=== PATIENT | female | born 1995 | race Caucasian/White ===

== ENCOUNTER 2017-05-27 20:11 | Emergency (ER) | payer MEDICAID, OTHER ==
--- NOTE | 2017-05-27 21:57 | ER Document Report ---
ED GI/ - General Mode of Arrival: Ambulatory Information source: Patient TRAVEL OUTSIDE OF THE [place] IN LAST 30 DAYS: No - HPI Patient complains to provider of: Vaginal bleeding Associated symptoms: Other - See above <SOCRATES CORLEY - Last Filed: 05/27/17 21:53> <DORISHAYY - Last Filed: 05/27/17 23:58> - General Chief Complaint: Vag Bleeding, +preg <12wks Stated Complaint: VAGINAL BLEEDING Time Seen by Provider: 05/27/17 21:46 Notes: Patient is a 21 year old female, with no past medical history, who presents to the emergency department complaining of vaginal bleeding while . Patient reports she is about 10 weeks is and her last menstrual cycle was at the end of February. Patient describes the bleeding as brownish in color. Patient denies abdominal cramps. 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 (SOCRATES CORLEY) Past Medical History - General Information source: Patient - Social History Smoking Status: Never Smoker Frequency of alcohol use: None Drug Abuse: None Family History: Reviewed & Not Pertinent Patient has suicidal ideation: No Patient has homicidal ideation: No <SOCRATES CORLEY - Last Filed: 05/27/17 21:53> Review of Systems - Review of Systems Constitutional: No symptoms reported EENT: No symptoms reported Cardiovascular: No symptoms reported Respiratory: No symptoms reported Gastrointestinal: denies: Abdominal pain Genitourinary: No symptoms reported Female Genitourinary: See HPI, Vaginal bleeding Musculoskeletal: No symptoms reported Skin: No symptoms reported Hematologic/Lymphatic: No symptoms reported Neurological/Psychological: No symptoms reported -: Yes All other systems reviewed and negative <SOCRATES CORLEY - Last Filed: 05/27/17 21:53> Physical Exam - Vital signs Interpretation: Normal - General General appearance: Appears well, Alert - HEENT Head: Normocephalic, Atraumatic - Respiratory Respiratory status: No respiratory distress Chest status: Nontender Breath sounds: Normal Chest palpation: Normal - Cardiovascular Rhythm: Regular Heart sounds: Normal auscultation Murmur: No - Abdominal Inspection: Normal Distension: No distension Bowel sounds: Normal Tenderness: Nontender Organomegaly: No organomegaly - Extremities General upper extremity: Normal inspection General lower extremity: Normal inspection - Neurological Neuro grossly intact: Yes Cognition: Normal Orientation: AAOx4 Valeria Coma Scale Eye Opening: Spontaneous Valeria Coma Scale Verbal: Oriented Valeria Coma Scale Motor: Obeys Commands [place] Coma Scale Total: 15 Speech: Normal - Psychological Associated symptoms: Normal affect, Normal mood - Skin Skin Temperature: Warm Skin Moisture: Dry Skin Color: Normal <BARNEYSOCRATES - Last Filed: 05/27/17 21:53> Course - Laboratory Result Diagrams: 05/27/17 22:03 <SHAYY MEADOWS - Last Filed: 05/27/17 23:58> - Vital Signs Vital signs: Temp Pulse Resp BP Pulse Ox 98.4 F 80 16 122/67 100 05/27/17 20:25 05/27/17 20:25 05/27/17 20:25 05/27/17 20:25 05/27/17 20:25 - Laboratory Laboratory results interpreted by me: 05/27/17 05/27/17 22:03 22:25 Beta HCG, Quant 48765.00 H Urine Blood MODERATE H Ur Leukocyte Esterase MODERATE H Discharge <SOCRATES CORLEY - Last Filed: 05/27/17 21:53> <SHAYY MEADOWS - Last Filed: 05/27/17 23:58> - Discharge Clinical Impression: with 7 completed weeks gestation Vaginal bleeding in Qualifiers: Trimester: first trimester Qualified Code(s): O46.91 - Antepartum hemorrhage, unspecified, first trimester Condition: Stable Disposition: HOME, SELF-CARE Additional Instructions: Bleeding During Early : You have been evaluated for passing blood while . While we take this symptom very seriously, most women with your degree of bleeding will go on to have a perfectly normal baby. At this time, there is no indication that a miscarriage will occur. (A miscarriage occurs when the fetus is abnormal. There is no medicine or treatment to prevent it.) A more serious cause of bleeding is tubal . An ultrasound can show whether the is in the uterus or in the tube. Sometimes in early , no fetus is seen. In this case, careful follow-up, including repeat blood tests and repeat ultrasound, is necessary. You should rest in bed until the symptoms have resolved. Do not douche or have sex for at least a week, or until OK'd by the doctor. Don't use tampons. Call the doctor or return for re-examination if there is an increase in bleeding or cramping, extreme weakness, fainting, new abdominal pain, fever, or passage of tissue. Your ultrasound showed a 7 week 5 day with a heart rate of 171. The bleeding you described was probably a subchorionic hemorrhage, however there is none seen on ultrasound at this time. You should rest and limit activity. [facility] for [facility]ck. Referrals: [facility] [Provider Group] - Follow up in 3-5 days Scribe Attestation: 05/27/17 23:58 I personally performed the services described in the documentation, reviewed and edited the documentation which was dictated to the scribe in my presence, and it accurately records my words and actions. (SHAYY MEADOWS) Scribe Documentation - Scribe Written by Sergio:: sergio Escobedo, 05/27/17, [id number] acting as scribe for :: Dori <SOCRATES CORLEY - Last Filed: 05/27/17 21:53>
[2017-05-27 22:16] LABS: ABSOLUTE EOSINOPHILS # (AUTO) 0.2 10^3/uL (0.0-0.6); ABSOLUTE LYMPHOCYTES (AUTO) 2.3 10^3/uL (0.5-4.7); ABSOLUTE MONOCYTES (AUTO) 0.5 10^3/uL (0.1-1.4); ABSOLUTE NEUT (AUTO) 4.3 10^3/uL (1.7-8.2); BASOPHILS % (AUTO) 0.4 % (0-2); EOSINOPHILS % (AUTO) 2.1 % (0-6); HEMATOCRIT 39.3 % (36.0-47.0); HEMOGLOBIN 13.2 g/dL (12.0-15.5); HGB HCT DIFFERENCE 0.3; MEAN CORPUSCULAR HEMOGLOBIN 29.5 pg (27.0-33.4); MEAN CORPUSCULAR HGB CONC 33.6 g/dL (32.0-36.0); MEAN CORPUSCULAR VOLUME 88 fl (80-97); MONOCYTES % (AUTO) 7.5 % (3-13); RED BLOOD COUNT 4.48 10^6/uL (3.72-5.28); RED CELL DISTRIBUTION WIDTH 13.5 % (11.5-14.0); WHITE BLOOD COUNT 7.3 10^3/uL (4.0-10.5)
--- NOTE | 2017-05-27 22:57 | RADIOLOGY REPORT (SQ) ---
EXAM DESCRIPTION: U/S OB TRANSVAGINAL W/O DOP COMPLETED DATE/TIME: 05/27/2017 10:28 pm REASON FOR STUDY: 10 weeks, spotting, no care COMPARISON: None. TECHNIQUE: Transvaginal static and realtime grayscale images acquired of the pelvis. Additional edward cted spectral and color Doppler images recorded. All images stored on PACs. bHCG: None provided LIMITATIONS: None. FINDINGS: FETUS: Living intrauterine . EGA: Murdock-rump length measures 1.43 cm consistent with a of 7 weeks 5 days. MIKKI: 01/08/2018 FHR: 171 beats per minute. SUBCHORIONIC BLEED: No SIZE OF BLEED: Not applicable. UTERUS: No masses. No anomalies. CERVICAL LENGTH: Not provided RIGHT ADNEXA: Normal ovary with normal vascular flow. No adnexal free fluid. No adnexal masses. LEFT ADNEXA: Ovary not identified. No adnexal free fluid. No adnexal masses. FREE FLUID: None. OTHER: No other significant finding. IMPRESSION: LIVING INTRAUTERINE . EGA 7 weeks 5 days by crown-rump length Left ovary not visualized on this study. Normal right ovary. Trimester of : First - 0 to 13 weeks. TECHNICAL DOCUMENTATION: JOB ID: [id number] [employer] All Rights Reserved
[2017-05-27 23:16] LABS: APPEARANCE,URINE CLEAR; BILIRUBIN,URINE NEGATIVE (NEGATIVE); GLUCOSE, URINE NEGATIVE (NEGATIVE); KETONES,URINE NEGATIVE (NEGATIVE); LEUKOCYTE ESTERASE,URINE MODERATE (NEGATIVE); NITRITE,URINE NEGATIVE (NEGATIVE); PROTEIN,URINE NEGATIVE (NEGATIVE); URINE SPECIFIC GRAVITY 1.005; UROBILINOGEN,URINE NEGATIVE mg/dL (<2.0)
[2017-05-28 00:05] VITALS: BP 118/76
== END 2017-05-28 00:05 | disposition home or self-care (01) ==
LOC: ER 20:11
DX: O46.91 Antepartum hemorrhage, unspecified, first trimester (principal); Z3A.10 10 weeks gestation of pregnancy
CPT/HCPCS: 36415; 76817; 81001; 84702; 85025; 86900; 86901; 99284

== ENCOUNTER 2017-06-03 02:44 | Emergency (ER) | payer MEDICAID ==
[2017-06-03] MEDS ORDERED: ACETAMINOPHEN 325 MG TABLET PO ONE (04:23)
--- NOTE | 2017-06-03 04:26 | ER Document Report ---
ED General - General Chief Complaint: Vag Bleeding, +preg <12wks Stated Complaint: VAGINAL BLEEDING Time Seen by Provider: 06/03/17 04:18 Notes: Patient is a 21-year-old female presents with complaint of abdominal pain and bleeding and . She says she is approximately 9 months . She has had bleeding for 3 weeks. She says bleeding is like a normal menstrual period. Pain is been gradually increasing. Pain is crampy type pain in the lower abdomen that radiates to her back. This is her first . She was seen here in May 27. At that time her quant was just over 23,000. Ultrasound showed a living IUP. [facility] She said that they did not take blood at that time but that did recheck her. Patient has occasionally taken Tylenol for pain. No recent fevers or infections. Some nausea but no vomiting. No other complaints at this time. TRAVEL OUTSIDE OF THE [place] IN LAST 30 DAYS: No - Related Data Allergies/Adverse Reactions: No Known Allergies Allergy (Unverified 06/03/17 02:50) Past Medical History - Social History Smoking Status: Never Smoker Frequency of alcohol use: None Drug Abuse: None Family History: Reviewed & Not Pertinent Patient has suicidal ideation: No Patient has homicidal ideation: No Renal/ Medical History: Denies: Hx Peritoneal Dialysis Review of Systems - Review of Systems Notes: My Normal Review Basic REVIEW OF SYSTEMS: CONSTITUTIONAL : Denies fever, chills, or sweats. Denies recent illness. RESPIRATORY: Denies cough, cold, or chest congestion. Denies shortness of breath, difficulty breathing, or wheezing. GASTROINTESTINAL: Lower abdominal pain. Some nausea. No vomiting. Denies constipation. Last BM: GENITOURINARY: Denies difficulty urinating, painful urination, burning, frequency, or blood in urine. FEMALE GENITOURINARY: Vaginal bleeding. LMP: Currently MUSCULOSKELETAL: Denies neck or back pain or joint pain or swelling. SKIN: Denies rash or skin lesions. HEMATOLOGIC : Denies easy bruising or bleeding.. NEUROLOGICAL: Denies altered mental status or loss of consciousness. Denies headache. Denies weakness or paralysis or loss of use of either side. Denies problems with gait or speech. Denies sensory or motor loss. ALL OTHER SYSTEMS REVIEWED AND NEGATIVE. Physical Exam - Vital signs Vitals: Temp Pulse Resp BP Pulse Ox 98.2 F 84 18 126/71 H 100 06/03/17 02:46 06/03/17 02:46 06/03/17 02:46 06/03/17 02:46 06/03/17 02:46 Course - Re-evaluation Re-evalutation: 06/03/17 06:24 On reevaluation patient continues to look very well. She does have a urinary tract infection on urinalysis. I did send her urine for culture. She does not have positive Romel's sign. She has minimal pain to palpation of her lower abdomen. She has no elevated white blood cell count. She does not have a fever. I do not feel that she requires admission at this time. I will give her a dose of Rocephin. I will place her on Keflex. I informed her that since she is she must return to the ER immediately if she has any fevers or feels that her symptoms are worsening. She does have a small subchorionic hemorrhage on ultrasound. I informed her that this could enlarge or he could get better. Informed her the best thing she can do is to avoid sexual activity and to avoid any heavy lifting or exertional activities. Patient agrees with plan. I talked to the patient at length about first trimester bleeding. I informed her that her may go on to be normal or could possibly in the miscarriage. I told her that we are unable to fully tell this at this time. Patient did have some increase her hCG level. Informed her did not increase quite as much as I would expect; however, this is not necessarily an indication that she is going to have a miscarriage. Patient has a follow-up appointment with her OB doctor on Saturday. Patient encouraged to return to ER immediately if she does have any heavy bleeding or worsening pain. Dictation of this chart was performed using voice recognition software; therefore, there may be some unintended grammatical errors. - Vital Signs Vital signs: Temp Pulse Resp BP Pulse Ox 98.2 F 84 18 126/71 H 100 06/03/17 02:46 06/03/17 02:46 06/03/17 02:46 06/03/17 02:46 06/03/17 02:46 - Laboratory Result Diagrams: 06/03/17 04:35 Laboratory results interpreted by me: 06/03/17 06/03/17 06/03/17 04:35 04:35 04:35 Hct 35.9 L Plt Count 142 L Seg Neutrophils % 79.4 H Beta HCG, Quant 30041.00 H Urine Protein 100 H Urine Blood LARGE H Urine Nitrite POSITIVE H Ur Leukocyte Esterase LARGE H Discharge - Discharge Clinical Impression: UTI (urinary tract infection) Qualifiers: Urinary tract infection type: site unspecified Hematuria presence: with hematuria Qualified Code(s): N39.0 - Urinary tract infection, site not specified ; R31.9 - Hematuria, unspecified Subchorionic bleed Qualifiers: Fetus number: single or unspecified fetus Trimester: first trimester Qualified Code(s): O41.8X10 - Other specified disorders of amniotic fluid and membranes, first trimester, not applicable or unspecified Condition: Good Disposition: HOME, SELF-CARE Additional Instructions: You have been given a dose of Rocephin. This is an antibiotic that you are given a shot of here in the ER. I have written a prescription for Keflex. This is an antibiotic he will continue to take over the next 7 days. Currently have no fever and you have no elevated white blood cell count in your blood work. Vital signs are normal. These are indications that infection is not severe. Despite this, it is still extremely important that you return to the ER immediately if you have any fevers, recurrent vomiting, or feel that your condition is worsening in any way. Your ultrasound did show a subchorionic hemorrhage. Please do not have any sexual activity and do not do any heavy lifting or any exertional activities. Please follow-up with your OB doctor on Saturday as scheduled. Your hCG level was just over 23,000 today. Return to the ER immediately if you have any heavy bleeding or worsening increasing pain. Prescriptions: Cephalexin Monohydrate [Keflex 500 mg Capsule] 500 mg PO QID #28 capsule Referrals: NADINE VALDEZ MD [Primary Care Provider] - 06/05/17
[2017-06-03 04:50] LABS: ABSOLUTE EOSINOPHILS # (AUTO) 0.1 10^3/uL (0.0-0.6); ABSOLUTE LYMPHOCYTES (AUTO) 1.2 10^3/uL (0.5-4.7); ABSOLUTE MONOCYTES (AUTO) 0.5 10^3/uL (0.1-1.4); ABSOLUTE NEUT (AUTO) 6.9 10^3/uL (1.7-8.2); BASOPHILS % (AUTO) 0.3 % (0-2); EOSINOPHILS % (AUTO) 0.7 % (0-6); HEMATOCRIT 35.9 % (36.0-47.0); HEMOGLOBIN 12.2 g/dL (12.0-15.5); HGB HCT DIFFERENCE 0.7; LYMPHOCYTES % (AUTO) 13.6 % (13-45); MEAN CORPUSCULAR HEMOGLOBIN 29.5 pg (27.0-33.4); MEAN CORPUSCULAR VOLUME 87 fl (80-97); RED BLOOD COUNT 4.14 10^6/uL (3.72-5.28); RED CELL DISTRIBUTION WIDTH 13.4 % (11.5-14.0); SEGMENTED NEUTROPHILS % (AUTO) 79.4 % (42-78); WHITE BLOOD COUNT 8.7 10^3/uL (4.0-10.5)
[2017-06-03 05:46] LABS: APPEARANCE,URINE CLOUDY; BILIRUBIN,URINE NEGATIVE (NEGATIVE); GLUCOSE, URINE NEGATIVE (NEGATIVE); KETONES,URINE NEGATIVE (NEGATIVE); LEUKOCYTE ESTERASE,URINE LARGE (NEGATIVE); NITRITE,URINE POSITIVE (NEGATIVE); PROTEIN,URINE 100 mg/dL (NEGATIVE); URINE SPECIFIC GRAVITY 1.016; UROBILINOGEN,URINE NEGATIVE mg/dL (<2.0)
--- NOTE | 2017-06-03 05:54 | RADIOLOGY REPORT (SQ) ---
EXAM DESCRIPTION: U/S OB TRANSVAG W/DOPPLER COMPLETED DATE/TIME: 06/03/2017 5:26 am REASON FOR STUDY: abd. pain, vag bleeding in COMPARISON: OB ultrasound 05/27/2017. TECHNIQUE: Transvaginal grayscale images acquired of the pelvis. Additional selected spectral and co luciano Doppler images recorded. All images stored on PACs. bHCG: Pending. LIMITATIONS: None. FINDINGS: FETUS: Living intrauterine . EGA: 8 weeks 5 days MIKKI: 01/08/2018 FHR: 175 beats per minute. SUBCHORIONIC BLEED: Yes. SIZE OF BLEED: 0.8 x 0.7 x 0.3 cm. UTERUS: Measures 7.9 x 5.8 x 3.8 cm. CERVICAL LENGTH: 2.1 cm. Closed. RIGHT ADNEXA: The right ovary measures 3.3 x 2.5 x 1.8 cm. Flow by Doppler was shown to the right ov noé. LEFT ADNEXA: The left ovary measures 2.9 x 2.0 x 2.1 cm. Flow by Doppler was shown to the left ovary . FREE FLUID: Trace amount of free fluid in the posterior cul-de-sac. IMPRESSION: LIVING INTRAUTERINE . EGA 8 WEEKS 5 DAYS. SMALL SUBCHORIONIC HEMORRHAGE. Trimester of : First - 0 to 13 weeks. TECHNICAL DOCUMENTATION: JOB ID: [id number] [employer]- All Rights Reserved
[2017-06-03] MEDS ORDERED: CEFTRIAXONE INJ 1000 MG VIAL IM ONE (06:13)
[2017-06-03] MEDS ORDERED: LIDOCAINE 1% INJ-PF (10 MG/ML) 30 ML SDV INFIL ONE (06:13)
[2017-06-03 06:54] VITALS: BP 124/76
== END 2017-06-03 06:55 | disposition home or self-care (01) ==
LOC: ER 02:44
DX: O41.8X10 Other specified disorders of amniotic fluid and membranes, first trimester, not applicable or unspecified (principal); O23.41 Unspecified infection of urinary tract in pregnancy, first trimester; R31.9 Hematuria, unspecified; Z3A.09 9 weeks gestation of pregnancy
CPT/HCPCS: 99284; 96372; 36415; 87086; 84702; 85025; 87088; 81001; 87186; 76817; 93976; J3490; J0696

== ENCOUNTER 2017-06-04 20:12 | Emergency (ER) | payer MEDICAID ==
[2017-06-04] MEDS ORDERED: HYDROCODONE/ACETAMINOPHEN 5-325 MG TABLET PO ONE (20:42)
--- NOTE | 2017-06-04 20:43 | ER Document Report ---
ED Medical Screen (RME) - General Chief Complaint: Vaginal Bleeding Stated Complaint: ABDOMINAL PAIN,VAGINAL BLEEDING Time Seen by Provider: 06/04/17 20:41 Notes: 21-year-old female G1 with some vaginal bleeding that has been a regular for around the last 10-11 days. Patient believes she passed the fetus today. She has had a recent ultrasound in this facility and [facility]. Patient states persistent left lower quadrant "cramping". She denies any fevers lightheadedness, or dizziness. TRAVEL OUTSIDE OF THE [place] IN LAST 30 DAYS: No - Related Data Allergies/Adverse Reactions: No Known Allergies Allergy (Verified 06/04/17 20:32) Past Medical History Renal/ Medical History: Denies: Hx Peritoneal Dialysis - Immunizations Hx Diphtheria, Pertussis, Tetanus Vaccination: No Physical Exam - Vital signs Vitals: Temp Pulse Resp BP Pulse Ox 98.4 F 83 18 111/59 L 100 06/04/17 20:33 06/04/17 20:33 06/04/17 20:33 06/04/17 20:33 06/04/17 20:33 Course - Vital Signs Vital signs: Temp Pulse Resp BP Pulse Ox 98.4 F 83 18 111/59 L 100 06/04/17 20:33 06/04/17 20:33 06/04/17 20:33 06/04/17 20:33 06/04/17 20:33
[2017-06-04 21:21] LABS: ABSOLUTE EOSINOPHILS # (AUTO) 0.1 10^3/uL (0.0-0.6); ABSOLUTE LYMPHOCYTES (AUTO) 1.9 10^3/uL (0.5-4.7); ABSOLUTE MONOCYTES (AUTO) 0.4 10^3/uL (0.1-1.4); BASOPHILS % (AUTO) 0.3 % (0-2); EOSINOPHILS % (AUTO) 1.7 % (0-6); HEMATOCRIT 36.4 % (36.0-47.0); HEMOGLOBIN 12.4 g/dL (12.0-15.5); HGB HCT DIFFERENCE 0.8; LYMPHOCYTES % (AUTO) 25.5 % (13-45); MEAN CORPUSCULAR HEMOGLOBIN 29.4 pg (27.0-33.4); MEAN CORPUSCULAR HGB CONC 34.1 g/dL (32.0-36.0); MEAN CORPUSCULAR VOLUME 86 fl (80-97); MONOCYTES % (AUTO) 5.9 % (3-13); RED BLOOD COUNT 4.21 10^6/uL (3.72-5.28); RED CELL DISTRIBUTION WIDTH 13.3 % (11.5-14.0); SEGMENTED NEUTROPHILS % (AUTO) 66.6 % (42-78); WHITE BLOOD COUNT 7.5 10^3/uL (4.0-10.5)
[2017-06-04] MEDS ORDERED: MISOPROSTOL 0.2 MG TABLET PO ONE (22:51)
[2017-06-04] MEDS ORDERED: NORMAL SALINE 1000 ML 1,000 ML IV PRN (22:57)
--- NOTE | 2017-06-04 22:57 | ER Document Report ---
ED General - General Chief Complaint: Vaginal Bleeding Stated Complaint: ABDOMINAL PAIN,VAGINAL BLEEDING Time Seen by Provider: 06/04/17 20:41 Mode of Arrival: Ambulatory Information source: Patient TRAVEL OUTSIDE OF THE [place] IN LAST 30 DAYS: No - HPI Patient complains to provider of: Vaginal bleeding, with spontaneous at home Onset: Just prior to arrival Onset/Duration: Gradual Quality of pain: Achy, Cramping Severity: Mild Pain Level: 2 Associated symptoms: None Exacerbated by: Denies Relieved by: Denies Similar symptoms previously: Yes Recently seen / treated by doctor: Yes Notes: Patient is a 21-year-old female who is approximately 9 weeks who presents to the emergency room for vaginal bleeding that began several days ago , she reports at home prior to coming to the emergency room she passed a large amount of blood as well as tissue consistent with a 9 week fetus, this was her first , she reports that she continues to have heavy bleeding, denies lightheadedness or shortness of breath, reporting mild pelvic cramping - Related Data Allergies/Adverse Reactions: No Known Allergies Allergy (Verified 06/04/17 20:32) Past Medical History - General Information source: Patient - Social History Smoking Status: Unknown if Ever Smoked Drug Abuse: None Family History: Reviewed & Not Pertinent Patient has suicidal ideation: No Patient has homicidal ideation: No Renal/ Medical History: Denies: Hx Peritoneal Dialysis - Immunizations Hx Diphtheria, Pertussis, Tetanus Vaccination: No Review of Systems - Review of Systems Constitutional: No symptoms reported EENT: No symptoms reported Cardiovascular: No symptoms reported Respiratory: No symptoms reported Gastrointestinal: No symptoms reported Genitourinary: No symptoms reported Female Genitourinary: See HPI Musculoskeletal: No symptoms reported Skin: No symptoms reported Hematologic/Lymphatic: No symptoms reported Neurological/Psychological: No symptoms reported -: Yes All other systems reviewed and negative Physical Exam - Vital signs Vitals: Temp Pulse Resp BP Pulse Ox 98.4 F 83 18 111/59 L 100 06/04/17 20:33 06/04/17 20:33 06/04/17 20:33 06/04/17 20:33 06/04/17 20:33 Interpretation: Normal - General General appearance: Appears well, Alert - HEENT Head: Normocephalic, Atraumatic Eyes: Normal Pupils: PERRL - Respiratory Respiratory status: No respiratory distress Chest status: Nontender Breath sounds: Normal Chest palpation: Normal - Cardiovascular Rhythm: Regular Heart sounds: Normal auscultation Murmur: No - Abdominal Inspection: Normal Distension: No distension Bowel sounds: Normal Tenderness: Nontender Organomegaly: No organomegaly - Genitourinary External exam: Normal Speculum exam: Cervix closed, Vaginal discharge Vaginal bleeding: Mild Bimanuel exam: Normal - Back Back: Normal, Nontender - Extremities General upper extremity: Normal inspection, Nontender, Normal color, Normal ROM , Normal temperature General lower extremity: Normal inspection, Nontender, Normal color, Normal ROM , Normal temperature, Normal weight bearing. No: Ramiro's sign - Neurological Neuro grossly intact: Yes Cognition: Normal Orientation: AAOx4 Valeria Coma Scale Eye Opening: Spontaneous [place] Coma Scale Verbal: Oriented [place] Coma Scale Motor: Obeys Commands Valeria Coma Scale Total: 15 Speech: Normal Motor strength normal: LUE, RUE, LLE, RLE Sensory: Normal - Psychological Associated symptoms: Normal affect, Normal mood - Skin Skin Temperature: Warm Skin Moisture: Dry Skin Color: Normal Course - Re-evaluation Re-evalutation: 06/04/17 22:57 Patient was discussed with on-call SCRUB WHEEL OPERATOR, Dr. Paredes who recommends 100 mcg of Cytotec p.o. 06/05/17 01:32 On exam patient has minimal amount of bleeding at the present time, cervix is closed, lab and imaging findings were discussed with patient at bedside which are consistent with complete , patient was provided with pain medication and advised to follow-up with SCRUB WHEEL OPERATOR or return if symptoms worsen, patient and family members at bedside acknowledge understanding and agreement with this plan - Vital Signs Vital signs: Temp Pulse Resp BP Pulse Ox 98.4 F 83 18 111/59 L 100 06/04/17 20:33 06/04/17 20:33 06/04/17 20:33 06/04/17 20:33 06/04/17 20:33 - Laboratory Result Diagrams: 06/04/17 21:08 - Diagnostic Test Radiology reviewed: Image reviewed, Reports reviewed Discharge - Discharge Clinical Impression: Complete miscarriage Condition: Stable Disposition: HOME, SELF-CARE Instructions: Miscarriage ([facility]) Additional Instructions: Follow up with your primary care provider and SCRUB WHEEL OPERATOR in one to 2 days. Return to the emergency room immediately if symptoms worsen or any additional concerns. Prescriptions: Hydrocodone/Acetaminophen [Hydrocodon-Acetaminophen 5-325] 1 each PO Q6 #14 tablet Referrals: NADINE VALDEZ MD [Primary Care Provider] - Follow up as needed
--- NOTE | 2017-06-04 23:47 | RADIOLOGY REPORT (SQ) ---
EXAM DESCRIPTION: U/S OB TRANSVAGINAL W/O DOP COMPLETED DATE/TIME: 06/04/2017 11:25 pm REASON FOR STUDY: pit; possible miscarriage; eval for complete passa COMPARISON: 05/27/2017 TECHNIQUE: Transvaginal static and realtime grayscale images acquired of the pelvis. Additional edward cted spectral and color Doppler images recorded. All images stored on PACs. BHCG: Not available. LIMITATIONS: None. FINDINGS: UTERUS: No visualized intrauterine . RIGHT ADNEXA: Normal ovary with normal vascular flow. No adnexal free fluid. No adnexal masses. LEFT ADNEXA: Normal ovary with normal vascular flow. No adnexal free fluid. No adnexal masses. FREE FLUID: Minimal fluid in the cervix. OTHER: Thickened endometrium 16 mm. There is color flow within the endometrium. IMPRESSION: NO VISUALIZED INTRA- OR EXTRAUTERINE . Spontaneous . bHCG LEVEL NOT AVAILABLE FOR CORRELATION WITH US FINDINGS. Heterogeneous endometrium with minimal positive vascular flow. TECHNICAL DOCUMENTATION: JOB ID: [id number] [employer]- All Rights Reserved
[2017-06-04] MEDS ORDERED: MISOPROSTOL 0.1 MG TABLET ONE (23:59)
[2017-06-04] MEDS ORDERED: MISOPROSTOL 0.2 MG TABLET ONE (23:59)
[2017-06-05] MEDS ORDERED: HYDROCODONE/ACETAMINOPHEN 5-325 MG 6 TAB/DSPK PO PRN (00:51)
[2017-06-05 02:17] VITALS: BP 110/70
== END 2017-06-05 01:46 | disposition home or self-care (01) ==
LOC: ER 20:12
DX: O03.9 Complete or unspecified spontaneous abortion without complication (principal)
CPT/HCPCS: 99284; 36415; 85025; 88305 ×2; 76817; J3490

== ENCOUNTER 2017-10-28 21:53 | Emergency (ER) | payer MEDICAID ==
[2017-10-28] MEDS ORDERED: NORMAL SALINE 1000 ML 1,000 ML IV ONE (23:45)
[2017-10-28] MEDS ORDERED: ONDANSETRON HCL INJ/PF 4 MG/2 ML SDV IV ONE (23:45)
--- NOTE | 2017-10-28 23:46 | ER Document Report ---
ED Medical Screen (RME) - General Chief Complaint: Dizziness Stated Complaint: DIZZINESS Time Seen by Provider: 10/28/17 23:39 TRAVEL OUTSIDE OF THE [place] IN LAST 30 DAYS: No - HPI Notes: 10/28/17 23:39 Patient is a 22-year-old female who presents the ED approximately 15 weeks complaining of feeling lightheaded, dizzy and nauseous 4-5 days. Patient states that she did have 2 episodes of vomiting today. Patient began developing a headache today as well with occasional light sensitivity. Patient states that she did have a miscarriage in the past when she was 10 weeks . She has not been evaluated by an [facility]ORATORY CHIEF, but is going to be appointed one [facility]. Patient has had a decreased p.o. intake because of the nausea. Patient has not had any vaginal bleeding, odor, or pelvic cramping. Patient does note having a dull soreness to her mid abdomen, however. Her last bowel movement was about 2 days ago which is normal for her to have a bowel movement every 2-3 days. Patient denies any other significant past medical history or drug allergies. Denies any fever, neck pain, URI, sore throat, chest pain, palpitations, syncope, cough, shortness of breath, wheeze, dyspnea, diarrhea, urinary retention, dysuria, hematuria, or rash. I have treated and performed a rapid initial assessment of this patient. A comprehensive ED assessment and evaluation of the patient, analysis of test results and completion of medical decision making process will be conducted by additional ED providers. - Related Data Allergies/Adverse Reactions: No Known Allergies Allergy (Verified 10/28/17 21:54) Past Medical History Renal/ Medical History: Denies: Hx Peritoneal Dialysis - Immunizations Hx Diphtheria, Pertussis, Tetanus Vaccination: No Physical Exam - Vital signs Vitals: Temp Pulse Resp BP Pulse Ox 97.9 F 93 16 118/63 100 10/28/17 21:58 10/28/17 21:58 10/28/17 21:58 10/28/17 21:58 10/28/17 21:58 - Respiratory Respiratory status: No respiratory distress Breath sounds: Normal - Cardiovascular Rhythm: Regular Heart sounds: Normal auscultation Course - Vital Signs Vital signs: Temp Pulse Resp BP Pulse Ox 97.9 F 93 16 118/63 100 10/28/17 21:58 10/28/17 21:58 10/28/17 21:58 10/28/17 21:58 10/28/17 21:58
[2017-10-29 00:11] LABS: ABSOLUTE EOSINOPHILS # (AUTO) 0.1 10^3/uL (0.0-0.6); ABSOLUTE LYMPHOCYTES (AUTO) 1.9 10^3/uL (0.5-4.7); ABSOLUTE MONOCYTES (AUTO) 0.5 10^3/uL (0.1-1.4); ABSOLUTE NEUT (AUTO) 5.5 10^3/uL (1.7-8.2); BASOPHILS % (AUTO) 0.3 % (0-2); EOSINOPHILS % (AUTO) 1.3 % (0-6); HEMATOCRIT 33.7 % (36.0-47.0); HEMOGLOBIN 12.1 g/dL (12.0-15.5); HGB HCT DIFFERENCE 2.6; LYMPHOCYTES % (AUTO) 23.4 % (13-45); MEAN CORPUSCULAR HEMOGLOBIN 30.9 pg (27.0-33.4); MEAN CORPUSCULAR HGB CONC 35.8 g/dL (32.0-36.0); MEAN CORPUSCULAR VOLUME 86 fl (80-97); MONOCYTES % (AUTO) 5.9 % (3-13); RED BLOOD COUNT 3.91 10^6/uL (3.72-5.28); RED CELL DISTRIBUTION WIDTH 14.4 % (11.5-14.0); SEGMENTED NEUTROPHILS % (AUTO) 69.1 % (42-78)
[2017-10-29 00:35] LABS: ALANINE AMINOTRANSFERASE 36 U/L (9-52); ALBUMIN 3.8 g/dL (3.5-5.0); ALKALINE PHOSPHATASE 58 U/L (38-126); ANION GAP 12 (5-19); ASPARTATE AMINO TRANSFERASE 24 U/L (14-36); BILIRUBIN,DIRECT 0.4 mg/dL (0.0-0.4); BILIRUBIN,TOTAL 0.5 mg/dL (0.2-1.3); BLOOD UREA NITROGEN 9 mg/dL (7-20); CARBON DIOXIDE 22 mmol/L (22-30); CHLORIDE 103 mmol/L (98-107); CREATININE RESULT 0.53 mg/dL (0.52-1.25); GLUCOSE 89 mg/dL (75-110); LIPASE 133.8 U/L (23-300); POTASSIUM 3.6 mmol/L (3.6-5.0); SODIUM 136.5 mmol/L (137-145); TOTAL PROTEIN 6.5 g/dL (6.3-8.2)
[2017-10-29 00:42] LABS: APPEARANCE,URINE CLEAR; BILIRUBIN,URINE NEGATIVE (NEGATIVE); GLUCOSE, URINE NEGATIVE (NEGATIVE); KETONES,URINE NEGATIVE (NEGATIVE); LEUKOCYTE ESTERASE,URINE MODERATE (NEGATIVE); NITRITE,URINE NEGATIVE (NEGATIVE); PROTEIN,URINE NEGATIVE (NEGATIVE); URINE SPECIFIC GRAVITY 1.009; UROBILINOGEN,URINE NEGATIVE mg/dL (<2.0)
[2017-10-29] MEDS ORDERED: ONDANSETRON 4 MG TAB.RAPDIS PO ONE (00:59)
--- NOTE | 2017-10-29 01:00 | ER Document Report ---
ED General - General Chief Complaint: Dizziness Stated Complaint: DIZZINESS Time Seen by Provider: 10/28/17 23:39 Notes: Patient is a pleasant 2-year-old female presents with complaint of some dizziness and nausea. She says she has had some nausea throughout her feels a little bit worse recently she has been getting some dizziness. She does admit she has not been drinking as much as she typically would because of nausea. She has a T-max at home of 100.1. No runny nose. No congestion. Very mild cough. He says that she has noticed very mild trace edema in her feet bilaterally. Currently she has no edema on exam. She denies any leg pain. She says she may have had very minimal periumbilical soreness but no further abdominal pain. She denies any diarrhea. No vaginal bleeding or discharge. This is her second . She is her had ultrasounds with this is negative. She has been followed by the health department. She says she is waiting [facility]. He denies any dysuria. TRAVEL OUTSIDE OF THE [place] IN LAST 30 DAYS: No - Related Data Allergies/Adverse Reactions: No Known Allergies Allergy (Verified 10/28/17 21:54) Past Medical History - Social History Smoking Status: Never Smoker Chew tobacco use (# tins/day): No Frequency of alcohol use: None Drug Abuse: None Family History: Reviewed & Not Pertinent Patient has suicidal ideation: No Patient has homicidal ideation: No Renal/ Medical History: Denies: Hx Peritoneal Dialysis - Immunizations Hx Diphtheria, Pertussis, Tetanus Vaccination: No Review of Systems - Review of Systems Notes: My Normal Review Basic REVIEW OF SYSTEMS: CONSTITUTIONAL : TMax of 100.1. RESPIRATORY: Denies cough, cold, or chest congestion. Denies shortness of breath, difficulty breathing, or wheezing. GASTROINTESTINAL: Very mild abdominal pain. Recurrent nausea. MUSCULOSKELETAL: Denies neck or back pain or joint pain or swelling. SKIN: Denies rash or skin lesions. NEUROLOGICAL: Denies altered mental status or loss of consciousness. Denies headache. Denies weakness or paralysis or loss of use of either side. Denies problems with gait or speech. Denies sensory or motor loss. ALL OTHER SYSTEMS REVIEWED AND NEGATIVE. Physical Exam - Vital signs Vitals: Temp Pulse Resp BP Pulse Ox 97.9 F 93 16 118/63 100 12/11/17 21:58 10/28/17 21:58 10/28/17 21:58 10/28/17 21:58 10/28/17 21:58 - Notes Notes: General Appearance: Well nourished, alert, cooperative, no acute distress, no obvious discomfort. Well-appearing. Vitals: reviewed, See vital signs table. Head: no swelling or tenderness to the head Eyes: PERRL, EOMI, Conjuctiva clear Mouth: No decreasd moisture Throat: No tonsillar inflammation, No airway obstruction, No lymphadenopathy Ears: Normal-appearing tympanic membranes bilaterally. Neck: Supple, no lymphadenopathy. Lungs: No wheezing, No rales, No rhonci, No accessory muscle use, good air exchange bilaterally. Heart: Normal rate, Regular rythm, No murmur, no rub Abdomen: Normal BS, soft, No rigidity, No reducible abdominal tenderness palpation, No guarding, no rebound, Extremities: strength 5/5 in all extremities, good pulses in all extremities, no swelling or tenderness in the extremities, no edema. Skin: warm, dry, appropriate color, no rash Neuro: speech clear, oriented x 3, normal affect, responds appropriately to questions. Course - Re-evaluation Re-evalutation: 10/29/17 05:32 Patient is well-appearing. I did offer to place an IV and give her some IV fluids but the patient refuses in the IV. She says she prefers to orally rehydrate. I did give her Zofran which she said helped very much with her nausea. She has no reproducible pain to palpation of her abdomen. She has no chest pain. Her lung valentine are completely clear. She has no nasal congestion or flulike symptoms. The only possible reported fever was a temp of 100.1 at home. Her temperature is not elevated. Her heart tones are normal and she has no vaginal reports of vaginal bleeding or discharge. Her urinalysis showed moderate leukocyte esterase however there is no white blood cells, no bacteria, and she has no dysuria. We will therefore send her urine for culture for any type of treatment was given. I did explain this to the patient as she is agreeable to it. Encouraged her return to ER immediately if she has any recurrent fevers, recurrent vomiting, if she continues filled dizzy, abdominal pain, vaginal bleeding. 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 Patient agrees with plan will be discharged home. Dictation of this chart was performed using voice recognition software; therefore, there may be some unintended grammatical errors. - Vital Signs Vital signs: Temp Pulse Resp BP Pulse Ox 98.0 F 86 16 116/72 99 10/29/17 02:02 10/29/17 02:02 10/29/17 02:02 10/29/17 02:02 10/29/17 02:02 - Laboratory Result Diagrams: 10/28/17 23:55 10/28/17 23:55 Laboratory results interpreted by me: 10/28/17 10/28/17 10/29/17 23:55 23:55 00:13 Hct 33.7 L RDW 14.4 H Sodium 136.5 L Beta HCG, Quant 48360.00 H Ur Leukocyte Esterase MODERATE H Discharge - Discharge Clinical Impression: Dizziness, Nausea Condition: Good Disposition: HOME, SELF-CARE Additional Instructions: Please continue to drink liquids to stay well hydrated. Please watch your urine. You will be well hydrated if you are urinating 3-4 times a day and your urine is not dark in color. Today your urine did not have WBCs or bacteria in it ; however, we will still send your urine for culture to make sure it does not grow out a bacteria. If your urine grows out a bacteria requiring treatment we will call you. You can also call the culture follow up number at [phone] to get your results. Please return to the ER immediately if you have abdominal pain , fevers, recurrent vomiting, worsening dizziness, vaginal bleeding, or if you feel that you are worsening. Prescriptions: Ondansetron [Zofran Odt 4 mg Tablet] 1 tab PO Q4H PRN #15 tab.rapdis PRN Reason: For Nausea/Vomiting Referrals: NADINE VALDEZ MD [Primary Care Provider] - Follow up in 3-5 days
[2017-10-29] MEDS ORDERED: ONDANSETRON ODT 4 MG TAB (6 TAB/DSPK) PO PRN (01:49)
[2017-10-29 02:03] VITALS: BP 116/72
== END 2017-10-29 02:07 | disposition home or self-care (01) ==
LOC: ER 21:53
DX: O26.92 Pregnancy related conditions, unspecified, second trimester (principal); R42 Dizziness and giddiness; R11.0 Nausea; Z3A.15 15 weeks gestation of pregnancy
CPT/HCPCS: 99284; 36415; 87086; 84702; 83690; 85025; 80053; 81001; S0119

== ENCOUNTER 2017-12-13 19:32 | Outpatient (CLI) | payer MEDICAID ==
[2017-12-13 20:39] LABS: APPEARANCE,URINE CLEAR; BILIRUBIN,URINE NEGATIVE (NEGATIVE); COLOR,URINE YELLOW; GLUCOSE, URINE NEGATIVE (NEGATIVE); KETONES,URINE NEGATIVE (NEGATIVE); LEUKOCYTE ESTERASE,URINE NEGATIVE (NEGATIVE); NITRITE,URINE NEGATIVE (NEGATIVE); PROTEIN,URINE NEGATIVE (NEGATIVE); URINE SPECIFIC GRAVITY 1.024; UROBILINOGEN,URINE NEGATIVE mg/dL (<2.0)
[2017-12-13 20:52] LABS: URINE AMPHETAMINES SCREEN NEGATIVE; URINE BARBITURATES SCREEN NEGATIVE; URINE BENZODIAZEPINES SCREEN NEGATIVE; URINE COCAINE SCREEN NEGATIVE; URINE MARIJUANA (THC) SCREEN NEGATIVE; URINE METHADONE SCREEN NEGATIVE; URINE PHENCYCLIDINE SCREEN NEGATIVE
== END 2017-12-13 21:24 | disposition home or self-care (01) ==
LOC: LC 19:32
PROVIDERS: ATTEND Obstetrics & Gynecology Gynecology
PROC: 4A1HXCZ Monitoring of Products of Conception, Cardiac Rate, External Approach (ICD-10-PCS; principal; 2017-12-13)
DX: O47.02 False labor before 37 completed weeks of gestation, second trimester (principal); Z3A.20 20 weeks gestation of pregnancy
CPT/HCPCS: 80307; 81001

== ENCOUNTER 2018-02-05 18:58 | Outpatient (CLI) | payer MEDICAID ==
[2018-02-05 20:06] LABS: APPEARANCE,URINE CLEAR; BILIRUBIN,URINE NEGATIVE (NEGATIVE); COLOR,URINE YELLOW; GLUCOSE, URINE NEGATIVE (NEGATIVE); KETONES,URINE NEGATIVE (NEGATIVE); LEUKOCYTE ESTERASE,URINE MODERATE (NEGATIVE); NITRITE,URINE NEGATIVE (NEGATIVE); PROTEIN,URINE NEGATIVE (NEGATIVE); URINE SPECIFIC GRAVITY 1.011; UROBILINOGEN,URINE NEGATIVE mg/dL (<2.0)
[2018-02-05 20:20] LABS: URINE AMPHETAMINES SCREEN NEGATIVE; URINE BARBITURATES SCREEN NEGATIVE; URINE BENZODIAZEPINES SCREEN NEGATIVE; URINE COCAINE SCREEN NEGATIVE; URINE MARIJUANA (THC) SCREEN NEGATIVE; URINE METHADONE SCREEN NEGATIVE; URINE PHENCYCLIDINE SCREEN NEGATIVE
[2018-02-05] MEDS ORDERED: NALBUPHINE HCL INJ 10 MG/1 ML AMPULE INJ ONE (23:36)
[2018-02-05] MEDS ORDERED: PROMETHAZINE HCL INJ 25 MG/1 ML VIAL IV ONE (23:37)
== END 2018-02-05 20:25 | disposition home or self-care (01) ==
LOC: LC 18:58
PROVIDERS: ATTEND Obstetrics & Gynecology Gynecology
PROC: 4A1HXCZ Monitoring of Products of Conception, Cardiac Rate, External Approach (ICD-10-PCS; principal; 2018-02-05)
DX: O47.02 False labor before 37 completed weeks of gestation, second trimester (principal); Z3A.27 27 weeks gestation of pregnancy; Z79.899 Other long term (current) drug therapy
CPT/HCPCS: 80307; 81001

== ENCOUNTER 2018-02-17 11:46 | Outpatient (CLI) | payer MEDICAID ==
[2018-02-17 13:07] LABS: T.VAGINALIS (WET MOUNT) NO TRICHOMONAS SEEN; WBCS (WET MOUNT) 2+ WBCS SEEN; YEAST (WET MOUNT) YEAST SEEN
[2018-02-17 13:08] LABS: BACTERIA (WET MOUNT) 4+ BACTERIA SEEN; EPITHELIALS (WET MOUNT) 4+ EPITHELIALS SEEN; RBCS (WET MOUNT) RARE RBCS SEEN
[2018-02-17 13:12] LABS: APPEARANCE,URINE SLIGHTLY-CLOUDY; BILIRUBIN,URINE NEGATIVE (NEGATIVE); COLOR,URINE YELLOW; GLUCOSE, URINE NEGATIVE (NEGATIVE); KETONES,URINE NEGATIVE (NEGATIVE); LEUKOCYTE ESTERASE,URINE MODERATE (NEGATIVE); NITRITE,URINE NEGATIVE (NEGATIVE); PROTEIN,URINE NEGATIVE (NEGATIVE); URINE SPECIFIC GRAVITY 1.018; UROBILINOGEN,URINE NEGATIVE mg/dL (<2.0)
[2018-02-17 13:30] LABS: URINE AMPHETAMINES SCREEN NEGATIVE; URINE BARBITURATES SCREEN NEGATIVE; URINE BENZODIAZEPINES SCREEN NEGATIVE; URINE COCAINE SCREEN NEGATIVE; URINE MARIJUANA (THC) SCREEN NEGATIVE; URINE METHADONE SCREEN NEGATIVE; URINE PHENCYCLIDINE SCREEN NEGATIVE
--- NOTE | 2018-02-17 13:45 | RADIOLOGY REPORT (SQ) ---
EXAM DESCRIPTION: U/S OB LIMITED COMPLETED DATE/TIME: 02/17/2018 1:35 pm REASON FOR STUDY: cervical length, patient bladimir COMPARISON: No previous this TECHNIQUE: Limited transabdominal and endovaginal grayscale ultrasound for evaluation of specific re quested obstetrical parameters. LIMITATIONS: None. FINDINGS: CERVICAL LENGTH: 3 cm Closed. ODESSA: 11.2 cm. FHR: 145 beats per minute. PRESENTATION: Cephalic. OTHER: Placenta anterior grade 1. No previa. No retroplacental hemorrhage IMPRESSION: LIMITED OBSTETRICAL ULTRASOUND WITH MEASURED PARAMETERS DELINEATED ABOVE. Trimester of : Third trimester - 28 weeks to delivery. TECHNICAL DOCUMENTATION: JOB ID: [id number] [employer]- All Rights Reserved Reading location - IP/workstation name: [email or web address]
[2018-02-17] MEDS ORDERED: FLUCONAZOLE 100 MG TABLET PO ONE (13:48)
[2018-02-17] MEDS ORDERED: FLUCONAZOLE 100 MG TABLET ONE (14:06)
== END 2018-02-17 14:15 | disposition home or self-care (01) ==
LOC: LC 11:46
PROVIDERS: ATTEND Obstetrics & Gynecology
PROC: 4A1HXCZ Monitoring of Products of Conception, Cardiac Rate, External Approach (ICD-10-PCS; principal; 2018-02-17)
DX: O98.813 Other maternal infectious and parasitic diseases complicating pregnancy, third trimester (principal); B37.9 Candidiasis, unspecified; Z3A.31 31 weeks gestation of pregnancy
CPT/HCPCS: 59899; 87210; 81001; 80307; 76815; J3490

== ENCOUNTER 2018-03-13 00:38 | Outpatient (CLI) | payer MEDICAID ==
[2018-03-13 01:32] LABS: APPEARANCE,URINE CLOUDY; BILIRUBIN,URINE NEGATIVE (NEGATIVE); COLOR,URINE YELLOW; GLUCOSE, URINE NEGATIVE (NEGATIVE); KETONES,URINE NEGATIVE (NEGATIVE); LEUKOCYTE ESTERASE,URINE LARGE (NEGATIVE); NITRITE,URINE NEGATIVE (NEGATIVE); PROTEIN,URINE NEGATIVE (NEGATIVE); URINE SPECIFIC GRAVITY 1.011; UROBILINOGEN,URINE NEGATIVE mg/dL (<2.0)
[2018-03-13 01:34] LABS: AMNISURE (ROM) NEGATIVE (NEGATIVE)
[2018-03-13 02:06] LABS: URINE AMPHETAMINES SCREEN NEGATIVE; URINE BARBITURATES SCREEN NEGATIVE; URINE BENZODIAZEPINES SCREEN NEGATIVE; URINE COCAINE SCREEN NEGATIVE; URINE MARIJUANA (THC) SCREEN NEGATIVE; URINE METHADONE SCREEN NEGATIVE; URINE PHENCYCLIDINE SCREEN NEGATIVE
--- NOTE | 2018-03-13 02:13 | Non Stress Test Report ---
Non Stress Test Datetime Report Generated by CPN: 03/13/2018 02:13 DEMOGRAPHIC Test Number: 1 EGA NST: 33.5 INDICATION Indication for Study: Ordered by Provider MONITORING Monitor Explained: Monitor Explained; Test Explained; Patient Verbalized Understanding Time on Monitor: 03/13/2018 00:52 Time off Monitor: 03/13/2018 01:56 NST Duration: 64 NST INTERVENTIONS NST Interventions: PO Hydration Physician Notified NST: Dr Cuevas BABY A: [id number] BABY A Movement : Present Contraction Frequency : 1-5 FHR Baseline : 120 Accelerations : 15X15 Decelerations : None Variability : Moderate 6-25bpm NST Review and Verified By : NDoyle RN NST Results: Reactive NST REPORT Report Trigger: Send Report
== END 2018-03-13 02:01 | disposition home or self-care (01) ==
LOC: LC 00:38
PROVIDERS: ATTEND Obstetrics & Gynecology
PROC: 4A1HXCZ Monitoring of Products of Conception, Cardiac Rate, External Approach (ICD-10-PCS; principal; 2018-03-13)
DX: Z03.71 Encounter for suspected problem with amniotic cavity and membrane ruled out (principal); Z3A.32 32 weeks gestation of pregnancy
CPT/HCPCS: 59025; 80307; 81001; 84112

== ENCOUNTER 2018-04-05 03:47 | Outpatient (CLI) | payer MEDICAID ==
[2018-04-05 04:26] LABS: APPEARANCE,URINE CLOUDY; BILIRUBIN,URINE NEGATIVE (NEGATIVE); COLOR,URINE YELLOW; GLUCOSE, URINE NEGATIVE (NEGATIVE); KETONES,URINE NEGATIVE (NEGATIVE); LEUKOCYTE ESTERASE,URINE LARGE (NEGATIVE); NITRITE,URINE POSITIVE (NEGATIVE); PROTEIN,URINE NEGATIVE (NEGATIVE); URINE SPECIFIC GRAVITY 1.017
[2018-04-05 04:33] LABS: AMNISURE (ROM) NEGATIVE (NEGATIVE)
[2018-04-05 04:41] LABS: URINE AMPHETAMINES SCREEN NEGATIVE; URINE BARBITURATES SCREEN NEGATIVE; URINE BENZODIAZEPINES SCREEN NEGATIVE; URINE COCAINE SCREEN NEGATIVE; URINE MARIJUANA (THC) SCREEN NEGATIVE; URINE METHADONE SCREEN NEGATIVE; URINE PHENCYCLIDINE SCREEN NEGATIVE
[2018-04-05] MEDS ORDERED: LIDOCAINE 1% INJ-PF (10 MG/ML) 30 ML SDV INJ ONE (05:07)
[2018-04-05] MEDS ORDERED: CEFTRIAXONE INJ 1000 MG VIAL IM ONE (05:07)
[2018-04-05] MEDS ORDERED: CEFTRIAXONE INJ 1000 MG VIAL ONE (05:12)
[2018-04-05] MEDS ORDERED: LIDOCAINE 1% INJ-PF (10 MG/ML) 30 ML SDV ONE (05:13)
== END 2018-04-05 06:35 | disposition home or self-care (01) ==
LOC: LC 03:47
PROVIDERS: ATTEND Obstetrics & Gynecology Gynecology
PROC: 4A1HXCZ Monitoring of Products of Conception, Cardiac Rate, External Approach (ICD-10-PCS; principal; 2018-04-05)
DX: Z34.93 Encounter for supervision of normal pregnancy, unspecified, third trimester (principal)
CPT/HCPCS: 59025; 84112; 81005; 80307; J3490; J0696

== ENCOUNTER 2018-04-06 22:33 | Inpatient (IN) | payer MEDICAID ==
--- NOTE | 2018-04-06 22:36 | Non Stress Test Report ---
Non Stress Test Datetime Report Generated by CPN: 04/06/2018 22:36 DEMOGRAPHIC EGA NST: 37.0 INDICATION Indication for Study: Ordered by Provider URINE RESULTS Urine Protein, NST: Negative Urine Ketones - NST: Negative Urine Glucose - NST: Negative Urine Blood - NST: Positive MONITORING Monitor Explained: Monitor Explained; Test Explained; Patient Verbalized Understanding Time on Monitor: 04/05/2018 04:06 Time off Monitor: 04/05/2018 06:05 NST Duration: 119 NST INTERVENTIONS NST Interventions: PO Hydration; Reposition Patient Physician Notified NST: Dr. Braun BABY A: [id number] BABY A Movement : Present Contraction Frequency : Occasional FHR Baseline : 130 Accelerations : 15X15 Decelerations : None Variability : Moderate 6-25bpm NST Review: Meets Criteria for Reactive NST NST Review and Verified By : Lilly Lopez RN NST Results: Reactive NST REPORT Report Trigger: Send Report
[2018-04-06 23:17] LABS: AMNISURE (ROM) POSITIVE (NEGATIVE)
[2018-04-06 23:35] LABS: APPEARANCE,URINE CLEAR; BILIRUBIN,URINE NEGATIVE (NEGATIVE); COLOR,URINE YELLOW; GLUCOSE, URINE NEGATIVE (NEGATIVE); KETONES,URINE NEGATIVE (NEGATIVE); LEUKOCYTE ESTERASE,URINE TRACE (NEGATIVE); NITRITE,URINE NEGATIVE (NEGATIVE); PROTEIN,URINE NEGATIVE (NEGATIVE); URINE SPECIFIC GRAVITY 1.017; UROBILINOGEN,URINE NEGATIVE mg/dL (<2.0)
[2018-04-06 23:59] LABS: URINE AMPHETAMINES SCREEN NEGATIVE; URINE BARBITURATES SCREEN NEGATIVE; URINE BENZODIAZEPINES SCREEN NEGATIVE; URINE COCAINE SCREEN NEGATIVE; URINE MARIJUANA (THC) SCREEN NEGATIVE; URINE METHADONE SCREEN NEGATIVE; URINE PHENCYCLIDINE SCREEN NEGATIVE
[2018-04-07] MEDS ORDERED: RINGERS SOLUTION,LACTATED 1,000 ML IV ONE (00:05)
[2018-04-07 01:04] LABS: ABSOLUTE BASOPHILS # (AUTO) 0.1 10^3/uL (0.0-0.2); ABSOLUTE LYMPHOCYTES (AUTO) 1.4 10^3/uL (0.5-4.7); ABSOLUTE MONOCYTES (AUTO) 0.5 10^3/uL (0.1-1.4); ABSOLUTE NEUT (AUTO) 7.1 10^3/uL (1.7-8.2); BASOPHILS % (AUTO) 0.6 % (0-2); EOSINOPHILS % (AUTO) 0.5 % (0-6); HEMATOCRIT 32.5 % (36.0-47.0); HEMOGLOBIN 11.2 g/dL (12.0-15.5); LYMPHOCYTES % (AUTO) 14.9 % (13-45); MEAN CORPUSCULAR HEMOGLOBIN 28.3 pg (27.0-33.4); MEAN CORPUSCULAR HGB CONC 34.4 g/dL (32.0-36.0); MEAN CORPUSCULAR VOLUME 82 fl (80-97); MONOCYTES % (AUTO) 5.9 % (3-13); PLATELET COUNT 196 10^3/uL (150-450); RED BLOOD COUNT 3.95 10^6/uL (3.72-5.28); RED CELL DISTRIBUTION WIDTH 14.2 % (11.5-14.0); SEGMENTED NEUTROPHILS % (AUTO) 78.1 % (42-78); TOTAL CELLS COUNTED % (AUTO) 100 %; WHITE BLOOD COUNT 9.1 10^3/uL (4.0-10.5)
[2018-04-07] MEDS ORDERED: NALBUPHINE HCL INJ 10 MG/1 ML AMPULE ONE ×2 (03:09→07:38)
[2018-04-07] MEDS ORDERED: NALBUPHINE HCL INJ 10 MG/1 ML AMPULE INJ ONE (03:14)
[2018-04-07] MEDS ORDERED: LIDOCAINE 1% INJ-PF (10 MG/ML) 30 ML SDV ONE ×2 (03:45→09:17)
[2018-04-07] MEDS ORDERED: MISOPROSTOL 0.2 MG TABLET ONE (03:45)
[2018-04-07] MEDS ORDERED: OXYTOCIN/NORMAL SALINE 20 UNIT/1,000 ML RTUINJ ONE (03:45)
[2018-04-07] MEDS ORDERED: OXYTOCIN/NORMAL SALINE 20 UNIT/1,000 ML RTUINJ IV PRN ×2 (05:59→10:38)
[2018-04-07] MEDS ORDERED: FENTANYL/BUPIVACAINE/NS/PF 300 MCG/150 ML RTUINJ EPI ONE (08:28)
[2018-04-07] MEDS ORDERED: EPHEDRINE SULFATE INJ 50 MG/1 ML AMPULE ONE (08:28)
[2018-04-07] MEDS ORDERED: BUPIVACAINE HCL 0.25 % INJ/PF (2.5 MG/1 ML) 30 ML VIAL ONE (08:28)
[2018-04-07] MEDS ORDERED: ACETAMINOPHEN WITH CODEINE #3 TABLET PO PRN ×2 (10:38)
[2018-04-07] MEDS ORDERED: BENZOCAINE/MENTHOL AEROSOL SPRAY 56 ML TOP PRN (10:38)
[2018-04-07] MEDS ORDERED: ZOLPIDEM TARTRATE 5 MG TABLET PO PRN (10:38)
[2018-04-07] MEDS ORDERED: DIBUCAINE 1% OINTMENT 28 GM TP PRN (10:38)
[2018-04-07] MEDS ORDERED: DIPH/PERTUSS(ACELL)/TETANUS VAC/PF 0.5 ML SYR (>=10YO) IM PRN (10:38)
[2018-04-07] MEDS ORDERED: MEASLES,MUMPS&RUBELLA VACC/PF 0.5 ML VIAL SUBCUT PRN (10:38)
--- NOTE | 2018-04-07 11:25 | Admission Physical ---
Datetime Report Generated by CPN: 04/07/2018 11:25 CURRENT ADMISSION Chief Complaint: Suspected Ruptured Membranes Indication for Induction: Not Applicable Admit Impression : Term, Intrauterine ; Active Labor; Ruptured Membranes Admit Plan: Admit to Unit ALLERGIES Medication Allergies: No Medication Allergies: No Known Allergies (04/05/2018) Latex: No Latex Allergies Food Allergies: none Environmental Allergies: none OBSTETRICAL HISTORY EDC: 04/26/2018 00:00 : 2 Para: 0 Term: 0 : 0 SAB: 1 IAB: 0 Ectopic: 0 Livin Cesareans: 0 VBACs: 0 Multiple Births: 0 Gestational Diabetes: No Rh Sensitization: No Incompetent Cervix: No RUBY: No Infertility: No ART Treatment: No Uterine Anomaly: No IUGR: No Hx Previous C/S: No Macrosomia: No Hx Loss/Stillborn: No PIH: No Hx : No Placenta Previa/Abruption: No Depression/PP Depression: No PTL/PROM: No Post Hemorrhage: No Current Procedures: Ultrasound Obstetrical History Comments: G1: SAB @ _9 weeks G2: current (no issues except N/V and headaches) SEE RECORDS Alcohol: No Marijuana : No Cocaine: No Other Illicit Drugs: No Cigarettes: Former Smoker. 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[employer] Surgery: No Heart Disease: No Hosp/Surgery: Yes Autoimmune Disorder: No Anesthetic Complications: No Kidney Disease: Yes Abnormal Pap Smear: Yes Neuro/Epilepsy: No Psychiatric Disorders: No Other Medical Diseases: No Hepatitis/Liver Disease: No Significant Family History: No Varicosities/Phlebitis: No Trauma/Violence : No Thyroid Dysfunction: No Medical History Comments: hospitalized at [facility] 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, polynephritis in 2017 after SAB, ovarian cysts, uti INFECTIOUS HISTORY Gonorrhea: No Genital Herpes: No Chlamydia: No Tuberculosis: No Syphilis: No Hepatitis: No HIV/AIDS Exposure: No Rash or Viral Illness: No HPV: Yes Infectious History Comments: HPV positive per pap smear from 09/30/17 PHYSICAL EXAM General: Normal HEENT: Normal Neurologic: Normal Thyroid: Deferred Heart: Normal Lungs: Normal Breast: Normal Back: Normal Abdomen: Normal Genitourinary Exam: Normal Extremities: Normal DTRs: Normal Pelvic Type: Adequate Vital Signs: Reviewed MEMBRANES Membranes: Ruptured FETUS A EGA: 37.2 FHR- Baseline: 135 Variability: Moderate 6-25bpm Accelerations: 15X15 Decelerations: None FHR Category: Category I Estimated Weight (gm): 2500 Presentation: Vertex Admit Comment: srom 2240, 04/06/18, clear Pitocin may have epidural prn gbs neg care complicated by depression, on zoloft, d/c planning PLANS FOR LABOR AND DELIVERY Labor and Delivery: None Pain Management: Natural; Medications Feeding Preference: Formula (Annotations: Data stored by [facility] on behalf of user) Benefit of Breast Feed Discussed: Yes Circumcision: N/A INFORMED CONSENT Assignment: Veena Yadav MD Signature: with User ID: Lauri : with User ID: Lauri
[2018-04-07] MEDS: IBUPROFEN 800 MG TABLET PO SCH ×2 (13:36→21:37)
[2018-04-07] MEDS: FERROUS SULFATE 325 MG TABLET PO SCH (17:32)
[2018-04-07] MEDS: DOCUSATE SODIUM 100 MG CAPSULE PO SCH (17:32)
[2018-04-08] MEDS: IBUPROFEN 800 MG TABLET PO SCH ×2 (05:56→14:21)
[2018-04-08 07:20] LABS: HEMATOCRIT 27.6 % (36.0-47.0); HEMOGLOBIN 9.6 g/dL (12.0-15.5); MEAN CORPUSCULAR HEMOGLOBIN 28.6 pg (27.0-33.4); MEAN CORPUSCULAR HGB CONC 34.8 g/dL (32.0-36.0); MEAN CORPUSCULAR VOLUME 82 fl (80-97); PLATELET COUNT 158 10^3/uL (150-450); RED BLOOD COUNT 3.36 10^6/uL (3.72-5.28); RED CELL DISTRIBUTION WIDTH 14.2 % (11.5-14.0); WHITE BLOOD COUNT 9.3 10^3/uL (4.0-10.5)
--- NOTE | 2018-04-08 09:42 | PDOC DISCHARGE SUMMARY ---
Final Diagnosis Discharge Date: 04/08/18 Discharge Data - Discharge Medication Home Medications: Vit/Iron Fum/Folic AC [ Tablet] 1 each PO DAILY 12/13/17 Ferrous Sulfate [Feosol 325 mg Tablet] 325 mg PO BID tablet 04/08/18 Ibuprofen [Motrin 800 mg Tablet] 800 mg PO Q8 tablet 04/08/18 Sertraline HCl 50 mg PO DAILY #0 04/08/18 Procedures: NST Intrapartum Procedure(s): Spontaneous Vaginal Delivery Complication(s): Laceration-Vaginal Laceration-Degree: 1st - Diagnosis Test Laboratory: Temp Pulse Resp BP Pulse Ox 97.9 F 63 18 123/86 H 100 04/08/18 06:00 04/08/18 06:00 04/08/18 06:00 04/08/18 06:00 04/08/18 06:00 04/06/18 04/07/18 04/08/18 22:50 00:51 06:52 RBC 3.95 3.36 L Hgb 11.2 L 9.6 L Hct 32.5 L 27.6 L Urine Opiates Screen NEGATIVE - Discharge information/Instructions Discharge Activity: Balance Activity w/Rest, Pelvic Rest Discharge Diet: Regular Disposition: HOME, SELF-CARE Follow up with: [facility] in: 4, Weeks
--- NOTE | 2018-04-08 09:44 | PDOC PROGRESS REPORT ---
Subjective-OB Progress Note for:: 04/08/18 Subjective: tolerating diet, bleeding slowing, pain controlled, feels good and wants to go home. Physical Exam (OB) Vital Signs: Temp Pulse Resp BP Pulse Ox 97.9 F 63 18 123/86 H 100 04/08/18 06:00 04/08/18 06:00 04/08/18 06:00 04/08/18 06:00 04/08/18 06:00 Intake & Output 04/07/18 04/08/18 04/09/18 06:59 06:59 06:59 Intake Total 600 Balance 600 Weight 55.9 kg - PIH/Pre-Eclampsia Clonus: Negative Headache: Absent Epigastric Pain: No Visual Changes: No - Abdomen Description: Firm Hernia Present: No Fundal Description: Firm Fundal Height: u/u - u/2 - Abdominal Tenderness: Nontender - Extremities Lower extremities: Ramiro's sign - neg Calf: Normal, Nontender Objective-Diagnostic Laboratory: 04/08/18 06:52 04/08/18 06:52 WBC 9.3 RBC 3.36 L Hgb 9.6 L Hct 27.6 L MCV 82 MCH 28.6 MCHC 34.8 RDW 14.2 H Plt Count 158 Assessment and Plan(PN) - Assessment and Plan (1) Normal vaginal delivery Is this a current diagnosis for this admission?: Yes - Time Spent with Patient Time with patient: Less than 15 minutes - Disposition Anticipated Discharge: Home - today if baby discharged
[2018-04-08] MEDS ORDERED: PRENATAL VITAMIN W DHA CAPSULE PO SCH (10:00)
[2018-04-08] MEDS ORDERED: SENNOSIDES/DOCUSATE 8.6-50 MG 1 EACH TABLET PO SCH (10:00)
[2018-04-08] MEDS: DOCUSATE SODIUM 100 MG CAPSULE PO SCH ×2 (10:55→17:17)
[2018-04-08] MEDS: FERROUS SULFATE 325 MG TABLET PO SCH ×2 (10:56→17:17)
[2018-04-08 13:50] VITALS: BP 123/86
--- NOTE | 2018-04-15 16:56 | Delivery Summary ---
Del Sum A-C Datetime Report Generated by CPN: 04/15/2018 16:55 DELIVERY PERSONNEL DELIVERY PERSONNEL: [id number] Delivery Doctor:: Abby Richter CNM Labor and Delivery Nurse:: Patito Zimmerman RNclinical care manager Nurse:: Megan Bruno RN Nursery Nurse:: Tiera RUELAS RN Student Observers:: S CELENA- STUDENT Retail Seasonal Specialist/APPLICATION SECURITY ARCHITECT: Nuha Lares, CONSULTATIVE SALES ASSOCIATE MATERNAL INFORMATION Delivery Anesthesia: Epidural Medications After Delivery: Pitocin Bolus-Please Comment; Pitocin Drip 20 Units/1000ml NSS Maternal Complications: None Provider Comments: of viable female , head, shoulders, and body delivered without difficulty, infant with spontaneous cry and respirations, to maternal abdomen, cord clamped X2, and cut free by pts after 2 min delay. Spontaneous delivery of placenta via valladares mechanism, appears intact, 3VC. Vagina and perineum inspected, laceration, repaired as above, hemostasis acheived with external fundal massage and IV Pitocin, mother and baby in stable condition, routine pp care. LABOR SUMMARY EDC: 04/26/2018 00:00 No. Babies in Womb: 1 Attempted: No Labor Anesthesia: Epidural LABOR INFORMATION Reason for Induction: Other Reason for Induction- Other: PROM- 04/05 Onset of Labor: 04/07/2018 07:00 Complete Dilatation: 04/07/2018 09:43 Other Ripening Agents: n/a Oxytocin: Augmentation Group B Beta Strep: Negative Antibiotics # of Doses: 0 Antibiotics Time of Last Dose: n/a Name of Antibiotic Given: n/a Steroids Given: None Reason Steroids Not Administered: Not Applicable Other Reason Not Administered: n/a MEMBRANES Membranes Rupture Method: Spontaneous Rupture of Membranes: 04/05/2017 05:20 Length of Rupture (hr): 8812.68 Amniotic Fluid Color: Clear Amniotic Fluid Color: Clear Amniotic Fluid Amount: Small Amniotic Fluid Odor: Normal STAGES OF LABOR Stage 1 hr: 2 Stage 1 min: 43 Stage 2 hr: 0 Stage 2 min: 18 Stage 3 hr: 0 Stage 3 min: 4 Total Time in Labor hr: 3 Total Time in Labor min: 5 VAGINAL DELIVERY Episiotomy: None Laceration #1: Periurethral Laceration Extension #1: First Degree Other Laceration: BILATERALLY, EXTENSION TO VAGINA Laceration Repair: Yes Laceration Repair Note: repiared with 3-0 chromic and 2-0 chromic Sponge Count Correct: N/A Sharps Count Correct: N/A CSECTION DELIVERY CSection Incision: N/A BABY A INFORMATION Delivery Date/Time: 04/07/2018 10:01 Method of Delivery: Vaginal Method of Delivery: Vaginal Born in Route : No : N/A Forceps: N/A Vacuum Extraction: N/A Shoulder Dystocia : No PRESENTATION/POSITION BABY A Presentation: Cephalic Cephalic Presentation: Vertex Vertex Position: Right Occipital Anterior Breech Presentation: N/A PLACENTA INFORMATION BABY A Placenta Delivery Time : 04/07/2018 10:05 Placenta Method of Delivery: Spontaneous Placenta Status: Delivered SCORES BABY A Heart Rate 1 min: >100 bpm Resp Effort 1 min: Good Cry Reflex Irritability 1 min: Cough or Sneeze or Pulls Away Muscle Tone 1 min: Active Motion Color 1 min: Body [place], Extremities Blue Resuscitation Effort 1 min: Tactile Stimulation SCORE 1 MIN: 9 Heart Rate 5 min: >100 bpm Resp Effort 5 min: Good Cry Reflex Irritability 5 min: Cough or Sneeze or Pulls Away Muscle Tone 5 min: Active Motion Color 5 min: Body [place], Extremities Blue Resuscitation Effort 5 min: Tactile Stimulation SCORE 5 MIN: 9 INFANT INFORMATION BABY A Gestational Age at Delivery: 37.2 Gestational Status: Early Term- 37- 38.6 Weeks Outcome : Liveborn Infant Condition : Stable Sex: Female Infant Sex: Female IDENTIFICATION BABY A Infant Verification Date/Time: 04/07/2018 10:25 ID Band Number: [id number] Mother's Name Verified: Yes Infant RN Verifying Infant: K James RNC/B Roulund RN WEIGHT/LENGTH BABY A Infant Birthweight (gm): 2670 Infant Weight (lb): 5 Weight (oz): 14 Infant Length (in): 18.50 Length (cm): 46.99 CORD INFORMATION BABY A No. Cord Vessels: 3 Nuchal Cord : N/A Cord Blood Taken: Yes-For Storage (Mom's Blood type +) Infant Suction: None ASSESSMENT BABY A Infant Complications: Multiple Variable Decels Physical Findings at Delivery: Within Normal Limits Physical Findings- Other: VOIDED Respirations: Appears Normal Skin to Skin: Yes Skin to Skin Time (min): 100 Press Setup Operator/ALS Called : No Infant Care By: Tiera RUELAS RN/ Jimmy ZIMMERMAN RN Transferred To: Remains with Mother BABY B INFORMATION : N/A SIGNATURES Assignment: Veena Yadav MD Signature: with User ID: Lauri : with User ID: Lauri
== END 2018-04-08 18:47 | disposition home or self-care (01) | DRG 775 ==
LOC: LC 22:33 → LR 23:40 → 2S 04-07 12:55
PROVIDERS: ADMIT Obstetrics & Gynecology Gynecology; ATTEND Obstetrics & Gynecology Gynecology
PROC: 10E0XZZ Delivery of Products of Conception, External Approach (ICD-10-PCS; principal; 2018-04-07)
PROC: 0HQ9XZZ Repair Perineum Skin, External Approach (ICD-10-PCS; 2018-04-07)
PROC: 0UQMXZZ Repair Vulva, External Approach (ICD-10-PCS; 2018-04-07)
PROC: 4A1HXCZ Monitoring of Products of Conception, Cardiac Rate, External Approach (ICD-10-PCS; 2018-04-07)
DX: O76 Abnormality in fetal heart rate and rhythm complicating labor and delivery (principal); O99.344 Other mental disorders complicating childbirth; O71.82 Other specified trauma to perineum and vulva; O42.12 Full-term premature rupture of membranes, onset of labor more than 24 hours following rupture; O70.0 First degree perineal laceration during delivery; F32.9 Major depressive disorder, single episode, unspecified; Z79.899 Other long term (current) drug therapy; Z87.891 Personal history of nicotine dependence; Z3A.37 37 weeks gestation of pregnancy; Z37.0 Single live birth; Z86.19 Personal history of other infectious and parasitic diseases
CPT/HCPCS: 36415; 80307; 81005; 84112; 85025; 85027; 86592; 86850; 86900; 86901; J2300; J2590; J3010; J3490; Q0114

== ENCOUNTER 2019-01-28 15:42 | Emergency (ER) | payer MEDICAID ==
--- NOTE | 2019-01-28 17:32 | ER Document Report ---
ED Medical Screen (RME) - General Chief Complaint: Chest Pain Stated Complaint: CHEST PAIN, NAUSEA, DIZZY Time Seen by Provider: 01/28/19 17:31 TRAVEL OUTSIDE OF THE [place] IN LAST 30 DAYS: No - HPI Notes: 01/28/19 17:31 Patient complaint of chest pain and shortness of breath which has been ongoing on and off for quite some time now. She has history of anxiety. Physical exam is unremarkable. - Related Data Allergies/Adverse Reactions: No Known Allergies Allergy (Verified 01/28/19 15:44) Past Medical History - Social History Frequency of alcohol use: None Drug Abuse: None Renal/ Medical History: Denies: Hx Peritoneal Dialysis - Immunizations Hx Diphtheria, Pertussis, Tetanus Vaccination: No Physical Exam - Vital signs Vitals: Temp Pulse Resp BP Pulse Ox 97.9 F 92 14 129/73 H 100 01/28/19 16:23 01/28/19 16:23 01/28/19 16:23 01/28/19 16:23 01/28/19 16:23 Course - Vital Signs Vital signs: Temp Pulse Resp BP Pulse Ox 97.9 F 92 14 129/73 H 100 01/28/19 16:23 01/28/19 16:23 01/28/19 16:23 01/28/19 16:23 01/28/19 16:23
--- NOTE | 2019-01-28 18:12 | RADIOLOGY REPORT (SQ) ---
EXAM DESCRIPTION: CHEST SINGLE VIEW COMPLETED DATE/TIME: 01/28/2019 5:47 pm REASON FOR STUDY: chest pain COMPARISON: None. EXAM PARAMETERS: NUMBER OF VIEWS: One view. TECHNIQUE: Single frontal radiographic view of the chest acquired. RADIATION DOSE: NA LIMITATIONS: None. FINDINGS: LUNGS AND PLEURA: No opacities, masses or pneumothorax. No pleural effusion. MEDIASTINUM AND HILAR STRUCTURES: No masses. Contour normal. HEART AND VASCULAR STRUCTURES: Heart normal in size. Normal vasculature. BONES: No acute findings. HARDWARE: None in the chest. OTHER: No other significant finding. IMPRESSION: NO ACUTE RADIOGRAPHIC FINDING IN THE CHEST. TECHNICAL DOCUMENTATION: JOB ID: [id number] [employer]- All Rights Reserved Reading location - IP/workstation name: [email or web address]
[2019-01-28 18:26] LABS: ABSOLUTE LYMPHOCYTES (AUTO) 1.5 10^3/uL (0.5-4.7); ABSOLUTE MONOCYTES (AUTO) 0.4 10^3/uL (0.1-1.4); ABSOLUTE NEUT (AUTO) 4.7 10^3/uL (1.7-8.2); BASOPHILS % (AUTO) 0.5 % (0-2); EOSINOPHILS % (AUTO) 0.5 % (0-6); HEMATOCRIT 43.1 % (36.0-47.0); HEMOGLOBIN 15.1 g/dL (12.0-15.5); LYMPHOCYTES % (AUTO) 22.3 % (13-45); MEAN CORPUSCULAR HEMOGLOBIN 29.3 pg (27.0-33.4); MEAN CORPUSCULAR VOLUME 84 fl (80-97); MONOCYTES % (AUTO) 5.3 % (3-13); PLATELET COUNT 199 10^3/uL (150-450); RED BLOOD COUNT 5.14 10^6/uL (3.72-5.28); RED CELL DISTRIBUTION WIDTH 13.9 % (11.5-14.0); SEGMENTED NEUTROPHILS % (AUTO) 71.4 % (42-78); TOTAL CELLS COUNTED % (AUTO) 100 %; WHITE BLOOD COUNT 6.6 10^3/uL (4.0-10.5)
[2019-01-28 18:30] LABS: APPEARANCE,URINE SLIGHTLY-CLOUDY; BILIRUBIN,URINE NEGATIVE (NEGATIVE); COLOR,URINE YELLOW; GLUCOSE, URINE NEGATIVE (NEGATIVE); KETONES,URINE NEGATIVE (NEGATIVE); LEUKOCYTE ESTERASE,URINE TRACE (NEGATIVE); NITRITE,URINE NEGATIVE (NEGATIVE); PROTEIN,URINE NEGATIVE (NEGATIVE); URINE SPECIFIC GRAVITY 1.014; UROBILINOGEN,URINE NEGATIVE mg/dL (<2.0)
[2019-01-28 18:31] LABS: INTERNATIONAL RATION (INR) 0.97; PROTHROMBIN TIME 13.4 SEC (11.4-15.4)
[2019-01-28 18:32] LABS: PARTIAL THROMBOPLASTIN TIME 31.4 SEC (23.5-35.8)
[2019-01-28 18:44] LABS: ALANINE AMINOTRANSFERASE 27 U/L (9-52); ALBUMIN 5.2 g/dL (3.5-5.0); ALKALINE PHOSPHATASE 65 U/L (38-126); ANION GAP 14 (5-19); ASPARTATE AMINO TRANSFERASE 26 U/L (14-36); BILIRUBIN,DIRECT 0.2 mg/dL (0.0-0.4); BILIRUBIN,TOTAL 0.6 mg/dL (0.2-1.3); BLOOD UREA NITROGEN 13 mg/dL (7-20); CALCIUM 10.7 mg/dL (8.4-10.2); CARBON DIOXIDE 25 mmol/L (22-30); CHLORIDE 102 mmol/L (98-107); CREATINE KINASE 56 U/L (30-135); GLUCOSE 95 mg/dL (75-110); POTASSIUM 4.2 mmol/L (3.6-5.0); SODIUM 141.4 mmol/L (137-145); TOTAL PROTEIN 7.9 g/dL (6.3-8.2)
[2019-01-28 18:56] LABS: CREATINE KINASE MB < 0.22 ng/mL (<4.55); TROPONIN I < 0.012 ng/mL
--- NOTE | 2019-01-29 01:58 | ER Document Report ---
ED General - General Chief Complaint: Chest Pain Stated Complaint: CHEST PAIN, NAUSEA, DIZZY Time Seen by Provider: 01/28/19 17:31 Notes: Patient is a 23-year-old female who presents to the emergency department with a chief complaint of chest pain, nausea, dizziness, fatigue, and shakiness. She states that she has been having her symptoms for the past 8 months and she delivered her baby. She has been started and stopped on multiple depression medications for depression. States she feels unmotivated and tired all the time. She works 44 hours a week and is always busy doing things for her family and work. She denies any vomiting, diarrhea, or any other symptoms at this time. Denies any cough, shortness of breath, abdominal pain, or abdominal cramping. TRAVEL OUTSIDE OF THE [place] IN LAST 30 DAYS: No - Related Data Allergies/Adverse Reactions: No Known Allergies Allergy (Verified 01/28/19 15:44) Past Medical History - Social History Smoking Status: Former Smoker Frequency of alcohol use: None Drug Abuse: None Family History: Reviewed & Not Pertinent Patient has suicidal ideation: No Patient has homicidal ideation: No Renal/ Medical History: Denies: Hx Peritoneal Dialysis - Immunizations Hx Diphtheria, Pertussis, Tetanus Vaccination: No Review of Systems - Review of Systems Notes: REVIEW OF SYSTEMS: CONSTITUTIONAL : Denies recent illness. Denies recent unintentional weight loss. Denies fever, chills, or sweats. EENT: Denies eye, ear, throat, or mouth pain, discharge, or symptoms. Denies nasal or sinus congestion. CARDIOVASCULAR: See HPI RESPIRATORY: Denies shortness of breath, cough, congestion, difficulty breathing, or wheezing. GASTROINTESTINAL: Denies nausea, vomiting, and diarrhea. Denies abdominal pain. Denies constipation. GENITOURINARY: Denies difficulty urinating, burning, blood in urine, urgency or frequency. MUSCULOSKELETAL: Denies neck and back pain. Denies joint pain or swelling. SKIN: Denies rash, itchiness, or lesions HEMATOLOGIC : Denies easy bruising or bleeding. LYMPHATIC: Denies swollen, painful, enlarged glands. NEUROLOGICAL: See HPI PSYCHIATRIC: See HPI All other systems reviewed and negative. Physical Exam - Vital signs Vitals: Temp Pulse Resp BP Pulse Ox 97.9 F 92 14 129/73 H 100 01/28/19 16:23 01/28/19 16:23 01/28/19 16:23 01/28/19 16:23 01/28/19 16:23 - Notes Notes: PHYSICAL EXAMINATION: GENERAL: Appears well, healthy, well-nourished, no acute distress. HEAD: Normocephalic, atraumatic. EYES: PERRL, conjunctiva normal, all extraocular movements intact, sclera nonicteric ENT: Moist mucous membranes. NECK: Supple, no noticeable swelling, redness, rash. Normal range of motion. LUNGS: Equal breath sounds bilaterally and clear to auscultation. No wheezes rales or rhonchi. CARDIOVASCULAR: S1-S2, regular rate, regular rhythm. Radial pulses 2+, normal. ABDOMEN: Normoactive bowel sounds. Soft, nontender, no guarding, no rebound tenderness, and no masses palpated. EXTREMITIES: Normal strength and range of motion, no pitting or edema. No cyanosis. NEUROLOGICAL: Moves all extremities upon command. Strength 5/5 in all extremities. PSYCH: Normal mood, normal affect. SKIN: Warm, dry. No rash, lesions, ulcerations noted. Normal skin turgor. Course - Re-evaluation Re-evalutation: 01/29/19 02:02 Patient's TSH level is low. It is unclear as to why she is having low energy, but is most likely due to her having an 8-month-old in her house. She is to follow-up with her primary care provider. She will be given Zofran to help with any nausea. Verbal discharge instructions were given to the patient. They verbalized understanding. They are stable for discharge. - Vital Signs Vital signs: Temp Pulse Resp BP Pulse Ox 98.3 F 96 16 112/78 99 01/29/19 02:18 01/29/19 02:18 01/29/19 02:18 01/29/19 02:18 01/29/19 02:18 - Laboratory Result Diagrams: 01/28/19 18:12 01/28/19 18:12 Laboratory results interpreted by me: 01/28/19 01/28/19 18:12 18:12 Calcium 10.7 H Albumin 5.2 H Ur Leukocyte Esterase TRACE H Discharge - Discharge Clinical Impression: Nausea Chest pain Qualifiers: Chest pain type: other chest pain Qualified Code(s): R07.89 - Other chest pain Fatigue Qualifiers: Fatigue type: chronic, unspecified Qualified Code(s): R53.82 - Chronic fatigue, unspecified Condition: Stable Disposition: HOME, SELF-CARE Additional Instructions: You were seen today in the emergency department for chest pain, nausea, dizziness, and fatigue. It is unclear as to why your fatigue. Your labs are normal. Please follow-up with the primary care provider in regards to this visit. If you develop shortness of breath, worsening symptoms, or any symptoms that are worrisome to you, please return to the emergency department. Prescriptions: Meclizine HCl [Antivert 25 mg Tablet] 25 mg PO TID PRN #15 tablet PRN Reason: Forms: Return to Work
[2019-01-29] MEDS ORDERED: ONDANSETRON ODT 4 MG TAB (6 TAB/ER DISP) PO PRN (02:06)
[2019-01-29 02:19] VITALS: BP 112/78
== END 2019-01-29 02:26 | disposition home or self-care (01) ==
LOC: ER 15:42
DX: R53.82 Chronic fatigue, unspecified (principal); R07.9 Chest pain, unspecified; R11.0 Nausea; R42 Dizziness and giddiness; Z87.891 Personal history of nicotine dependence
CPT/HCPCS: 36415; 71045; 80053; 81001; 81025; 82550; 82553; 84443; 84484; 85025; 85610; 85730; 99284